=== PATIENT | female | born 1985 | race Caucasian/White ===

== ENCOUNTER → 2017-06-09 | Outpatient (REF) | payer BC ==
[2017-06-12 08:06] LABS: HPV HYBRID CAPTURE II Negative (Negative)
== END ==
LOC: M LAB REF 13:31
DX: Z12.4 Encounter for screening for malignant neoplasm of cervix (principal)
CPT/HCPCS: G0123

== ENCOUNTER → 2017-06-16 | Outpatient (REF) | payer BC ==
[2017-06-16 12:15] LABS: ALBUMIN 3.6 GM/DL (3.2-5.2); ALBUMIN/GLOBULIN RATIO 1.24 (1.00-1.93); ALKALINE PHOSPHATASE 41 U/L (45-117); ALT/SGPT 15 U/L (12-78); ANION GAP 8 MEQ/L (8-16); AST/SGOT 16 U/L (7-37); BILIRUBIN,TOTAL 0.2 MG/DL (0.2-1.0); BLOOD UREA NITROGEN 7 MG/DL (7-18); CALCIUM LEVEL 8.7 MG/DL (8.5-10.1); CARBON DIOXIDE LEVEL 29 MEQ/L (21-32); CHLORIDE LEVEL 105 MEQ/L (98-107); CHOLESTEROL LEVEL 133 MG/DL (<200); CHOLESTEROL RISK RATIO 3.325 (<5); CREATININE FOR GFR 0.64 MG/DL (0.55-1.02); GLOMERULAR FILTRATION RATE > 60.0 (>60); GLUCOSE, FASTING 80 MG/DL (70-100); HDL CHOLESTEROL 40 MG/DL (>40); LDL CHOLESTEROL 78.4 MG/DL (<100); NON-HDL-C 93 MG/DL; POTASSIUM SERUM 3.9 MEQ/L (3.5-5.1); SODIUM LEVEL 142 MEQ/L (136-145); TOTAL PROTEIN 6.5 GM/DL (6.4-8.2); TRIGLYCERIDES LEVEL 73 MG/DL (<150)
== END ==
LOC: M SFHCCLAY 08:57
DX: Z13.220 Encounter for screening for lipoid disorders (principal)

== ENCOUNTER → 2018-07-07 | Outpatient (REF) | payer BC ==
[2018-07-23 14:19] LABS: HPV HYBRID CAPTURE II Negative (Negative)
== END ==
LOC: M LAB REF 12:58
PROVIDERS: ATTEND Advanced Practice Midwife
DX: Z12.4 Encounter for screening for malignant neoplasm of cervix (principal)
CPT/HCPCS: 87624; G0123

== ENCOUNTER → 2018-09-25 | Outpatient (REF) | payer BC ==
[2018-09-25 11:45] LABS: BASO % 0.5 % (0.0-1.0); EOS % 0.3 % (0.0-3.0); HEMATOCRIT 38.6 % (36.0-47.0); LYMPH # 0.7 10^3/uL (1.5-4.5); LYMPH % 10.8 % (24.0-44.0); MEAN CORPUSCULAR HEMOGLOBIN 30.4 pg (27.0-33.0); MEAN CORPUSCULAR HGB CONC 33.7 g/dl (32.0-36.5); MEAN CORPUSCULAR VOLUME 90.4 fl (80.0-96.0); MONO # 0.3 10^3/uL (0.0-0.8); MONO % 3.8 % (0.0-5.0); NEUTROPHILS # 5.5 10^3/uL (1.8-7.7); NEUTROPHILS % 84.1 % (36.0-66.0); PLATELET COUNT, AUTOMATED 227 10^3/uL (150-450); RED BLOOD COUNT 4.27 10^6/uL (4.00-5.40); WHITE BLOOD COUNT 6.6 10^3/uL (4.0-10.0)
[2018-09-25 12:41] LABS: HIV 1&2 SCREEN CENTAUR NEGATIVE (NEGATIVE); RUBELLA IgG QUALITATIVE IMMUNE (IMMUNE)
[2018-09-25 13:25] LABS: CHLAMYDIA DNA AMPLIFICATION NEGATIVE (NEGATIVE); GC DNA AMPLIFICATION NEGATIVE (NEGATIVE)
== END ==
LOC: M LABDRAWC 11:02
PROVIDERS: ATTEND Advanced Practice Midwife
DX: Z34.81 Encounter for supervision of other normal pregnancy, first trimester (principal); Z3A.09 9 weeks gestation of pregnancy

== ENCOUNTER → 2018-12-31 | Outpatient (CLI) | payer BC ==
[2018-12-31 19:35] LABS: HEMATOCRIT 36.7 % (36.0-47.0); MEAN CORPUSCULAR HEMOGLOBIN 30.5 pg (27.0-33.0); MEAN CORPUSCULAR HGB CONC 32.7 g/dl (32.0-36.5); MEAN CORPUSCULAR VOLUME 93.4 fl (80.0-96.0); PLATELET COUNT, AUTOMATED 224 10^3/uL (150-450); RED BLOOD COUNT 3.93 10^6/uL (4.00-5.40); WHITE BLOOD COUNT 11.3 10^3/uL (4.0-10.0)
== END ==
LOC: M SMT 13:04
PROVIDERS: ATTEND Advanced Practice Midwife
DX: O99.512 Diseases of the respiratory system complicating pregnancy, second trimester (principal)

== ENCOUNTER → 2019-03-12 | Outpatient (REF) | payer BC | LOC: M LAB REF 13:02 | PROVIDERS: ATTEND Advanced Practice Midwife | DX: Z36.85 Encounter for antenatal screening for Streptococcus B (principal); O26.893 Other specified pregnancy related conditions, third trimester; Z3A.00 Weeks of gestation of pregnancy not specified ==

== ENCOUNTER → 2019-03-17 | Outpatient (CLI) | payer BC | LOC: M SMT 08:29 | PROVIDERS: ATTEND Advanced Practice Midwife | DX: O26.893 Other specified pregnancy related conditions, third trimester (principal); Z3A.00 Weeks of gestation of pregnancy not specified ==

== ENCOUNTER 2019-04-11 20:58 | Outpatient (CLI) | payer BC ==
[~2019-04-11] VITALS: Ht 162.6 cm; Wt 96.7 kg
== END 2019-04-11 23:10 | disposition home or self-care (01) ==
LOC: M LDO 20:58
PROVIDERS: ATTEND Obstetrics & Gynecology
DX: O47.1 False labor at or after 37 completed weeks of gestation (principal); Z3A.40 40 weeks gestation of pregnancy
CPT/HCPCS: 59025; G0378; G0463

== ENCOUNTER 2019-04-12 05:26 | Inpatient (IN) | payer BC ==
[2019-04-12] VITALS (50 sets, daily range): BP systolic 103–141; BP diastolic 57–92
[~2019-04-12] VITALS: Ht 162.6 cm; Wt 97.6 kg
[2019-04-12] MEDS ORDERED: PENICILLIN G POTASSIUM IV 5 MU in D5W MINI-BAG PLUS 100 ML IV ONE (06:45)
[2019-04-12] MEDS: LR 1,000 ML IV SCH ×3 (07:00→18:44)
[2019-04-12 07:06] LABS: HEMATOCRIT 39.4 % (36.0-47.0); HEMOGLOBIN 13.4 g/dl (12.0-15.5); MEAN CORPUSCULAR HEMOGLOBIN 31.2 pg (27.0-33.0); MEAN CORPUSCULAR VOLUME 91.6 fl (80.0-96.0); PLATELET COUNT, AUTOMATED 172 10^3/uL (150-450); WHITE BLOOD COUNT 11.3 10^3/uL (4.0-10.0)
[2019-04-12] MEDS ORDERED: LACTATED RINGER'S 1000 ML IV STA (07:51)
--- NOTE | 2019-04-12 07:52 | HPE ---
DATE OF ADMISSION: 04/12/2019 REASON FOR ADMISSION: Labor. HISTORY OF PRESENT ILLNESS: The patient is a 34-year-old 2, para 0 who presents at 40 weeks plus 5 days estimated gestational age with complaints of contractions. She reports contractions have increased in intensity and frequency throughout the night. She reports active movement. No vaginal bleeding or leakage of fluid. Her course has been unremarkable. She initiated care in her first trimester and has been appropriate throughout. PAST MEDICAL HISTORY: Exercise-induced asthma. PAST SURGICAL HISTORY: She has had dilation and curettage. MEDICATIONS: Includes: - vitamins. ALLERGIES: 1. SULFA. OBSTETRICAL HISTORY: She is 1, para 0. SOCIAL HISTORY: She denies any alcohol, tobacco or drug use. PHYSICAL EXAMINATION Her vital signs are stable. She is afebrile. She has category 1 rate tracing. CERVICAL EXAM: She was 3 cm dilated, 80% effaced, -2 station. LABS: Blood type is A positive. Antibody screen negative. Rubella is immune. RPR is nonreactive. Hepatitis surface antigen negative. HIV is negative. Hepatitis C nonreactive. Chlamydia and gonorrhea screens were negative. She had a normal one hour Glucola. She is Group B Streptococcus (GBS) positive. ASSESSMENT: 1. This patient is 34-year-old 2, para 0 at 40 weeks 5 days estimated gestational age here in active labor. 2. Reassuring status. PLAN: 1. Admit to labor and delivery. CBC, RPR, type and screen. 2. Penicillin for GBS positive. 3. Patient is a good candidate for epidural. 4. Anticipate spontaneous vaginal delivery.
[2019-04-12] MEDS ORDERED: FENTANYL 2MCG/ML ROPIVACAINE 0.2% IN 0.9% NACL 100ML IVBAG As Ordered ONE (07:54)
[2019-04-12] MEDS: FENTANYL/ROPIVACAINE/NACL BAG 100 ML EPIDURAL SCH ×2 (08:25→16:57)
[2019-04-12] MEDS ORDERED: diphenhydrAMINE INJ 50MG/ML VIAL (J1200) IV PRN (09:00)
[2019-04-12] MEDS ORDERED: NALOXONE INJ 0.4 MG/1 ML VIAL (J2310) IV PRN (09:00)
[2019-04-12] MEDS ORDERED: EPIDURAL COMMENT XX SCH (09:00)
[2019-04-12] MEDS ORDERED: REFRIGERATOR IV KEYS XX PRN (09:00)
[2019-04-12] MEDS ORDERED: LACTATED RINGER'S 1000 ML IV PRN (09:00)
[2019-04-12] MEDS ORDERED: EPIDURAL/PCA KEYS XX PRN (09:00)
[2019-04-12] MEDS ORDERED: ONDANSETRON 4MG/2ML VIAL (J2405) IV PRN (09:00)
[2019-04-12] MEDS ORDERED: ePHEDrine SULFATE 25 MG/5 ML(5MG/ML) SYRINGE IV PRN (09:00)
[2019-04-12] MEDS ORDERED: OXYTOCIN DRIP 30 UNITS in IV 1 EA IV SCH ×2 (09:45→20:26)
[2019-04-12] MEDS: PENICILLIN G POTASSIUM IV 2.5 MU in IV 1 EA IV SCH ×2 (11:41→15:16)
--- NOTE | 2019-04-12 12:02 | IPNPDOC ---
Obstetrical Progress Note Date of Service Apr 12, 2019 Subjective Patient reports increased pressure. States epidural is working well. Objective Vital Signs Label Value Date Time Patient Temperature 98.2 degrees F 04/12/19 1109 Temperature Source Temporal 04/12/19 1109 Pulse 88 04/12/19 1109 Respiratory Rate 16 bpm 04/12/19 1109 Blood Pressure Assessment 114/73 (87) 04/12/19 1109 Source Automatic Cuff (NIBP) Assessment Heart Rate (FHR): 130 Variability: Moderate Accelerations: Positive Decelerations: Early Heart Rate Tracing: Category I Tocometer Contractions: Yes Frequency: regular Sterile Vaginal Examination Dilation: 5 cm (5-6 cm) Effacement (%): 100% Station: 0 Postion/Presentation: Cephalic presentation Assessment and Plan Age: 34 : 2 Term: 0 Pre-term: 0 Abortions: 1 Livin EGA at Admission: 40.4 Status: Reassuring Group B Streptococcus: Positive Anticipate: Vaginal Delivery Additional Comments IV Pitocin at 4 mu/min. AROM to a moderate amount of meconium noted. Neonatology to be notified as needed. OLU THAYER CNM Apr 12, 2019 12:02
[2019-04-12 20:14] LABS: CORD GAS ABE A -4.4; CORD GAS HCO3 A 22.7 MEQ/L; CORD GAS PCO2 A 49.2 mmHg; CORD GAS PH A 7.282 UNITS; CORD GAS PO2 A 13.5 mmHg; CORD GAS SBC A 18.9 MEQ/L; CORD GAS TCO2 A 24.2 MEQ/L
[2019-04-12 20:15] LABS: CORD GAS ABE V -4.5; CORD GAS HCO3 V 21.5 MEQ/L; CORD GAS O2 SAT V 38.6 %; CORD GAS PCO2 V 42.6 mmHg; CORD GAS PH V 7.32 UNITS; CORD GAS PO2 V 19.2 mmHg; CORD GAS SBC V 19.3 MEQ/L; CORD GAS TCO2 V 22.8 MEQ/L
[2019-04-12] MEDS ORDERED: ACETAMINOPHEN 500 MG TAB PO PRN (20:30)
[2019-04-12] MEDS ORDERED: DOCUSATE SODIUM 100 MG CAP PO PRN (20:30)
[2019-04-12] MEDS ORDERED: ANUSOL HC CREAM 30GM TOP PRN (20:30)
[2019-04-12] MEDS ORDERED: RHOGAM 300 MCG (1500 IU) INJ (J2790) IM SCH (20:30)
[2019-04-12] MEDS ORDERED: IBUPROFEN 800 MG TAB PO PRN (20:30)
[2019-04-12] MEDS ORDERED: DIBUCAINE 1% OINTMENT 30GM TOP PRN (20:30)
[2019-04-12] MEDS ORDERED: METHYLERGONOVINE MALEATE 0.2 MG TAB PO PRN (20:30)
[2019-04-12] MEDS ORDERED: MEASLES,MUMPS,RUBELLA VACCINE INJ (MMR-II) (90707) SC SCH (20:30)
[2019-04-12] MEDS ORDERED: ACETAMINOPHEN TAB 650MG DOSE (2X325MG) PO PRN (20:30)
--- NOTE | 2019-04-12 20:40 | DNPDOC ---
[facility] Delivery Note Delivery Note DATE OF DELIVERY: 04/12/19 at 1918 PREDELIVERY DIAGNOSIS: 40-4/7 weeks' gestation and labor. POST DELIVERY DIAGNOSIS: Delivered. PROCEDURE: Spontaneous vaginal delivery. SOCIAL PSYCHOLOGIST: Olu Cifuentes CNM, WHNP ANESTHESIA: epidural. ESTIMATED BLOOD LOSS: 300 mL. FINDINGS: 6 pounds 11 ounces; 3040 grams; male , Score 7/9, meconium, AMA. DELIVERY SUMMARY: Patient is a 34-year-old female who is now a at 40.4 weeks gestation who presented to L&D in active labor. She received an epidural for for pain management. She progressed to fully dilated at 1830 and pushed to a living male in the [place]AS[place] position with restitution to ROT. The anterior shoulder delivered with ease and the corpus immediately followed at 191. The baby was placed on the maternal abdomen. The cord was clamped and cut. The baby was pl aced on the warming table and suctioned and given some supplemental oxygen. Cord gases were obtained. See below. A 3-vessel cord was noted. The placenta delivered spontaneously and intact at 192. Uterine hemostasis was achieved via rapid in fusion of IV Pitocin and fundal massage. The perineum, vagina, and cervix were inspected and found to have a second degree laceration that was repaired with a 3.[address]-1. Mom plans to breast feed her and was able to do so in L&D. They are naming him Foster. Both mom and baby are in stable condition. All counts of instruments and sponges are correct. Item Value Date Time Cord Arterial Blood pH 7.282 UNITS 04/12/191999 Cord Arterial Blood PCO2 49.2 mmHg 04/12/191999 Cord Arterial Blood PO2 13.5 mmHg 04/12/191999 Cord Arterial Blood HCO3 22.7 MEQ/L 04/12/191999 Cord Arterial Blood Total CO2 24.2 MEQ/L 04/12/191999 Cord Arterial Blood Base Excess -4.4 04/12/191999 Cord Arterial Base Excess (Standard 18.9 MEQ/L 04/12/191999 Cord Arterial Bld Oxygen Saturation 18.0 % 04/12/191999 Item Value Date Time Cord Venous Blood pH 7.320 UNITS 04/12/191999 Cord Venous Blood PCO2 42.6 mmHg 04/12/191999 Cord Venous Blood PO2 19.2 mmHg 04/12/191999 Cord Venous Blood HCO3 21.5 MEQ/L 04/12/191999 Cord Venous Blood Total CO2 22.8 MEQ/L 04/12/191999 Cord Venous Base Excess (Actual) -4.5 04/12/191999 Cord Venous Base Excess (Standard) 19.3 MEQ/L 04/12/191999 Cord Venous Blood Oxygen Saturation 38.6 % 04/12/191999 OLU CIFUENTES CNM Apr 12, 2019 20:40
[2019-04-12] MEDS: IBUPROFEN 600 MG TAB PO PRN (21:40)
[2019-04-13 06:00] VITALS: BP 107/64
[2019-04-13] MEDS: IBUPROFEN 600 MG TAB PO PRN (06:28)
--- NOTE | 2019-04-13 07:10 | IPNPDOC ---
Progress Note Date of Service: Apr 13, 2019 Day#: 1 Progress Note SUBJECT: She has been ambulating, voiding spontaneously without issue and terrance erating regular diet. is struggling with breast feeding. Reports lochia is like a normal to heavy period. OBJECTIVE: VITAL SIGNS: Within normal limits, afebrile. Alert and oriented times three. Breath sounds clear to auscultation. Heart rate: Regular rate and rhythm, no murmurs, rubs or gallops. Abdomen: Fundus firm at U. Soft, NTTP. Moderate lochia. ASSESSMENT: Day 1 . PLAN: 1. Continue with supportive nursing care. 2. Continue with support. 3. Anticipate discharge to home tomorrow. VS, I&O, 24H, Fishbone Vital Signs/I&O Vital Signs Date Time Temp Pulse Resp B/P (MAP) Pulse Ox O2 Delivery O2 Flow Rate FiO2 04/13/19 06:00 99.7 84 20 107/64 (78) 97 Room Air I&O- Last 24 Hours up to 6 AM 04/13/19 06:00 Intake Total 4650 ml Output Total 1950 ml Balance 2700 ml Laboratory Data 24H LABS Laboratory Tests 2 04/12/19 20:00: Cord Arterial Blood pH 7.282, Cord Arterial Blood PCO2 49.2, Cord Arterial Blood PO2 13.5, Cord Arterial Blood HCO3 22.7, Cord Arterial Blood Total CO2 24.2, Cord Arterial Blood Base Excess -4.4, Cord Arterial Base Excess (Standard 18.9, Cord Arterial Bld Oxygen Saturation 18.0, Cord Venous Blood pH 7.320, Cord Venous Blood PCO2 42.6, Cord Venous Blood PO2 19.2, Cord Venous Blood HCO3 21.5, Cord Venous Blood Total CO2 22.8, Cord Venous Base Excess (Actual) -4.5, Cord Venous Base Excess (Standard) 19.3, Cord Venous Blood Oxygen Saturation 38.6 OLU THAYER CNM Apr 13, 2019 07:10
[2019-04-13 18:00] VITALS: BP 110/76
[2019-04-14 06:00] VITALS: BP 112/57
[2019-04-14] MEDS ORDERED: IBUP80TA PO (06:16)
[2019-04-14] MEDS ORDERED: ACET-683 PO (06:16)
[2019-04-14] MEDS: PRENATAL VITAMINS CHEWABLE TABLET PO SCH (08:00)
[2019-04-14] MEDS: IBUPROFEN 600 MG TAB PO PRN (08:01)
== END 2019-04-14 12:20 | disposition home or self-care (01) | DRG 560 ==
LOC: M LDO 05:26 → M LDI 05:55 → M OBS 21:13
PROVIDERS: ADMIT Obstetrics & Gynecology; ATTEND Advanced Practice Midwife
PROC: 10E0XZZ Delivery of Products of Conception, External Approach (ICD-10-PCS; principal; 2019-04-12)
PROC: 10907ZC Drainage of Amniotic Fluid, Therapeutic from Products of Conception, Via Natural or Artificial Opening (ICD-10-PCS; 2019-04-12)
PROC: 0KQM0ZZ Repair Perineum Muscle, Open Approach (ICD-10-PCS; 2019-04-12)
DX: O48.0 Post-term pregnancy (principal); Z3A.40 40 weeks gestation of pregnancy; Z37.0 Single live birth; O99.824 Streptococcus B carrier state complicating childbirth; O77.0 Labor and delivery complicated by meconium in amniotic fluid; O70.1 Second degree perineal laceration during delivery

== ENCOUNTER → 2019-12-10 | Outpatient (REF) | payer OTHER, BC ==
[~2019-12-10] MED LIST: ACET-683 PO; IBUP80TA PO
== END ==
LOC: M LAB REF 18:37
PROVIDERS: ATTEND Physician Assistant Medical
DX: Z11.59 Encounter for screening for other viral diseases (principal); Z20.828 Contact with and (suspected) exposure to other viral communicable diseases

== ENCOUNTER → 2020-09-19 | Outpatient (CLI) | payer OTHER ==
--- NOTE | 2020-09-20 10:45 | REP ---
INDICATION: N63.0 LT BREAST LUMP. COMPARISON: None TECHNIQUE: Diagnostic left mammography was carried out with diagnostic left breast ultrasonography. Patient presents with a clinically palpable mass in the left breast near the 3 o'clock position. In addition to standard CC and MLO views of the left breast using 2D and 3D modalities, diagnostic digital magnified spot compression views were obtained over the region of interest indicated by the technologist placing a triangular-shaped marker on the skin. FINDINGS: Scattered dense heterogenous fibroglandular elements are seen throughout the left breast the such a degree that the sensitivity of the mammogram in detecting cancers decreased. There are no masses. There is no internal architectural distortion. There are no suspicious microcalcifications. No skin thickening or nipple retraction is not present. Diagnostic digital magnified spot compression views of the left breast over the region of interest show no abnormalities. Diagnostic ultrasonography of the left breast over the region of interest shows no cystic or solid masses. The Volpara volumetric breast density pattern is C. IMPRESSION: BIRADS/ACR category 2. There is no mammographic evidence or ultrasonographic evidence of malignant alteration of the left breast. Routine mammography is recommended as clinically indicated. This patient's Tyrer-Cuzick lifetime breast cancer risk assessment score is 17.7%. This mammogram was interpreted with the aid of an FDA-approved computer-aided detection system. The patient states she had a clinical breast exam in the date of the last clinical breast exam is not indicated in the paperwork provided.. The patient letter being requested is M2. Negative mammogram and a negative breast ultrasound examination should never could curtail biopsy of a clinically palpable mass or clinically suspicious area of the breast. Consider surgical consultation and breast MRI. RECOMMENDATION: As above <Electronically signed by Lorenzo Srivastava > 09/20/20 [id number]
== END ==
LOC: M WHC 09:52
PROVIDERS: ATTEND Advanced Practice Midwife
DX: N63.0 Unspecified lump in unspecified breast (principal)

== ENCOUNTER → 2020-11-22 | Outpatient (CLI) | payer OTHER ==
[~2020-11-22] MED LIST changes: +PROHANCE 279.3MG/ML 15ML VIAL As Ordered ONE
--- NOTE | 2020-11-22 11:35 | REP ---
INDICATION: LT BREAST MASS. COMPARISON: Comparison mammography and sonography of the left breast September 19, 2020. TECHNIQUE: Three Sarai MRI imaging was performed with a dedicated breast coil. Axial, coronal, and sagittal T1 and T2 weighted scans were obtained with and without fat saturation in the usual fashion. The study includes dynamically acquired post gadolinium-enhanced imaging with image subtraction. Maximum intensity projection and multi planar reformation imaging is included as well. This study is interpreted with the aid of [place], an FDA approved computer aided detection (CAD) software program, on a dedicated breast MRI workstation. The gadolinium enhancement dose is 15 mL of intravenous ProHance. FINDINGS: There is a moderate amount of fibroglandular tissue bilaterally corresponding with the mammographic pattern. There is minimal background parenchymal enhancement. There is no evidence of axillary lymphadenopathy or significant breast cystic change. Scattered small subcentimeter T2 hyperintense areas consistent with small fibroadenomas are noted. High-resolution pre and post-contrast T1 and T2 weighted scans show no suspicious morphologic abnormality in either breast. Dynamically acquired sequential postcontrast images show no suspicious area of enhancement and washout kinetics in either breast to suggest malignancy. Subtraction images show no additional abnormality. IMPRESSION: BI-RADS category 2 benign bilateral breast MRI findings. <Electronically signed by Marvel Grayson > 11/22/20 [id number]
== END ==
LOC: M RAD 09:21
PROVIDERS: ATTEND Advanced Practice Midwife
DX: N63.20 Unspecified lump in the left breast, unspecified quadrant (principal)

== ENCOUNTER → 2021-05-11 | Outpatient (CLI) | payer OTHER ==
[~2021-05-11] MED LIST changes: -PROHANCE 279.3MG/ML 15ML VIAL As Ordered ONE
[2021-05-11 17:21] LABS: HEMATOCRIT 37.4 % (36.0-47.0); HEMOGLOBIN 12.5 g/dl (12.0-15.5); MEAN CORPUSCULAR HGB CONC 33.4 g/dl (32.0-36.5); MEAN CORPUSCULAR VOLUME 89.7 fl (80.0-96.0); PLATELET COUNT, AUTOMATED 271 10^3/uL (150-450); RED BLOOD COUNT 4.17 10^6/uL (4.00-5.40); WHITE BLOOD COUNT 11.1 10^3/uL (4.0-10.0)
[2021-05-11 18:23] LABS: HEPATITIS C VIRUS ABY INDEX 0.1 INDEX (<0.8); HIV 1&2 SCREEN CENTAUR NEGATIVE (NEGATIVE)
[2021-05-11 19:00] LABS: GC DNA AMPLIFICATION NEGATIVE (NEGATIVE)
== END ==
LOC: M PLALAB 15:07
PROVIDERS: ATTEND Advanced Practice Midwife
DX: O09.521 Supervision of elderly multigravida, first trimester (principal)

== ENCOUNTER → 2021-09-20 | Outpatient (CLI) | payer OTHER ==
[2021-09-20 15:08] LABS: HEMATOCRIT 33.8 % (36.0-47.0); HEMOGLOBIN 11.4 g/dl (12.0-15.5); MEAN CORPUSCULAR HEMOGLOBIN 30.6 pg (27.0-33.0); MEAN CORPUSCULAR HGB CONC 33.7 g/dl (32.0-36.5); MEAN CORPUSCULAR VOLUME 90.6 fl (80.0-96.0); PLATELET COUNT, AUTOMATED 211 10^3/uL (150-450); RED BLOOD COUNT 3.73 10^6/uL (4.00-5.40); WHITE BLOOD COUNT 10.7 10^3/uL (4.0-10.0)
== END ==
LOC: M PLALAB 13:00
PROVIDERS: ATTEND Advanced Practice Midwife
DX: O09.522 Supervision of elderly multigravida, second trimester (principal)

== ENCOUNTER → 2021-10-18 | Outpatient (CLI) | payer OTHER ==
[2021-10-18 13:10] LABS: HEMOGLOBIN 11.3 g/dl (12.0-15.5); MEAN CORPUSCULAR HEMOGLOBIN 30.2 pg (27.0-33.0); MEAN CORPUSCULAR HGB CONC 33.2 g/dl (32.0-36.5); MEAN CORPUSCULAR VOLUME 90.9 fl (80.0-96.0); PLATELET COUNT, AUTOMATED 221 10^3/uL (150-450); RED BLOOD COUNT 3.74 10^6/uL (4.00-5.40); WHITE BLOOD COUNT 11.6 10^3/uL (4.0-10.0)
[2021-10-18 14:10] LABS: FREE T4 0.82 NG/DL (0.76-1.46); THYROID STIMULATING HORMONE 0.688 uIU/ML (0.358-3.740)
== END ==
LOC: M PLALAB 11:03
PROVIDERS: ATTEND Advanced Practice Midwife
DX: O26.813 Pregnancy related exhaustion and fatigue, third trimester (principal); Z3A.00 Weeks of gestation of pregnancy not specified

== ENCOUNTER → 2021-11-20 | Outpatient (CLI) | payer OTHER | LOC: M WHC 10:12 | PROVIDERS: ATTEND Advanced Practice Midwife | DX: O98.513 Other viral diseases complicating pregnancy, third trimester (principal); Z3A.36 36 weeks gestation of pregnancy ==

== ENCOUNTER → 2021-11-21 | Outpatient (REF) | payer OTHER | LOC: M PLALAB 16:10 | PROVIDERS: ATTEND Advanced Practice Midwife | DX: O09.523 Supervision of elderly multigravida, third trimester (principal) ==

== ENCOUNTER 2021-12-10 16:13 | Inpatient (IN) | payer OTHER ==
[2021-12-10] VITALS (18 sets, daily range): BP systolic 118–159; BP diastolic 59–80
[~2021-12-10] VITALS: Ht 170.2 cm; Wt 100.1 kg
[2021-12-10] MEDS ORDERED: LACTATED RINGER'S 1000 ML IV STA (16:44)
[2021-12-10] MEDS ORDERED: OXYTOCIN INJ 10 UNITS/ML VIAL (J2590) IM PRN (16:45)
[2021-12-10] MEDS ORDERED: TRANEXAMIC ACID INJection 1,000 MG in NS 100 ML IV PRN (16:45)
[2021-12-10] MEDS ORDERED: LR 1,000 ML IV SCH (16:45)
[2021-12-10] MEDS ORDERED: METHYLERGONOVINE MALEATE 0.2 MG/ML VIAL (J2210) IM PRN (16:45)
[2021-12-10] MEDS ORDERED: OXYTOCIN DRIP 30 UNITS in IV 1 EA IV PRN (16:45)
[2021-12-10] MEDS ORDERED: LIDOCAINE 1% MDV 20ML VIAL INFIL PRN (16:45)
[2021-12-10] MEDS ORDERED: CARBOPROST TROMETHAMINE 250 MCG/ML AMP IM PRN (16:45)
[2021-12-10] MEDS ORDERED: PRENTAB9 PO (16:58)
[2021-12-10] MEDS ORDERED: COLA100C5 PO (16:58)
[2021-12-10] MEDS ORDERED: HOME MED LIST COMPLETE! XX SCH (17:00)
[2021-12-10 17:47] LABS: MEAN CORPUSCULAR HEMOGLOBIN 30.2 pg (27.0-33.0); MEAN CORPUSCULAR HGB CONC 33.3 g/dl (32.0-36.5); MEAN CORPUSCULAR VOLUME 90.7 fl (80.0-96.0); PLATELET COUNT, AUTOMATED 187 10^3/uL (150-450); WHITE BLOOD COUNT 10.9 10^3/uL (4.0-10.0)
[2021-12-10] MEDS ORDERED: FENTANYL 2MCG/ML ROPIVACAINE 0.2% IN 0.9% NACL 100ML IVBAG As Ordered ONE (18:24)
[2021-12-10] MEDS ORDERED: ONDANSETRON 4MG 2ML VIAL IV PRN (18:30)
[2021-12-10] MEDS ORDERED: FENTANYL/ROPIVACAINE/NACL BAG 100 ML EPIDURAL SCH (18:30)
[2021-12-10] MEDS ORDERED: ePHEDrine SULFATE 25 MG/5 ML(5MG/ML) SYRINGE IVP PRN (18:30)
[2021-12-10] MEDS ORDERED: NALOXONE INJ 0.4MG/1ML VIAL (J2310 PER 1MG) IV PRN (18:30)
[2021-12-10] MEDS ORDERED: LR 500 ML IV PRN (18:30)
[2021-12-10] MEDS ORDERED: EPIDURAL/PCA KEYS XX PRN (18:30)
[2021-12-10] MEDS ORDERED: diphenhydrAMINE 50MG/ML VIAL (J1200) IV PRN (18:30)
[2021-12-10 21:32] LABS: ALT/SGPT 29 U/L (12-78); BILIRUBIN,TOTAL 0.3 MG/DL (0.2-1.0); CREATININE FOR GFR 0.59 MG/DL (0.55-1.30); GLOMERULAR FILTRATION RATE > 60.0 (>60); LDH LACTATE DEHYDROGENASE 285 U/L (84-246); URIC ACID 4.5 MG/DL (2.6-6.0)
[2021-12-10] MEDS ORDERED: ACETAMINOPHEN 500 MG TAB PO PRN (21:55)
[2021-12-10] MEDS ORDERED: ACETAMINOPHEN TAB 650MG DOSE (2X325MG) PO PRN (21:55)
[2021-12-10] MEDS ORDERED: IBUPROFEN 800 MG TAB PO PRN (21:55)
[2021-12-10] MEDS ORDERED: IBUPROFEN 600MG TAB PO PRN (21:55)
[2021-12-10] MEDS ORDERED: DIBUCAINE 1% OINTMENT 30GM TOP PRN (21:55)
[2021-12-10] MEDS ORDERED: ANUSOL HC CREAM 30GM TOP PRN (21:55)
[2021-12-10] MEDS ORDERED: RHOGAM 300 MCG (1500 IU) INJ (J2790) IM SCH (21:55)
[2021-12-11 00:12] VITALS: BP 121/78
[2021-12-11 05:21] VITALS: BP 109/59
[2021-12-11] MEDS: DOCUSATE SODIUM 100MG CAPSULE PO PRN (07:30)
[2021-12-11] MEDS: PRENATAL VITAMINS CHEWABLE TABLET PO SCH (07:30)
[2021-12-11 08:31] VITALS: BP 109/59
[2021-12-11 18:00] VITALS: BP 121/56
[2021-12-12 06:28] VITALS: BP 120/64
[2021-12-12] MEDS: PRENATAL VITAMINS CHEWABLE TABLET PO SCH (08:05)
[2021-12-12] MEDS: DOCUSATE SODIUM 100MG CAPSULE PO PRN (08:08)
[2021-12-12] MEDS ORDERED: MEASLES,MUMPS,RUBELLA VACCINE INJ (MMR-II) (90707) SC.IMMUN ONE (09:00)
== END 2021-12-12 10:35 | disposition home or self-care (01) | DRG 560 ==
LOC: M LDO 16:13 → M LDI 16:44 → M OBS 12-11 00:10
PROVIDERS: ADMIT Advanced Practice Midwife; ATTEND Advanced Practice Midwife
PROC: 10E0XZZ Delivery of Products of Conception, External Approach (ICD-10-PCS; principal; 2021-12-10)
PROC: 0HQ9XZZ Repair Perineum Skin, External Approach (ICD-10-PCS; 2021-12-10)
PROC: 10907ZC Drainage of Amniotic Fluid, Therapeutic from Products of Conception, Via Natural or Artificial Opening (ICD-10-PCS; 2021-12-10)
DX: O77.0 Labor and delivery complicated by meconium in amniotic fluid (principal); Z37.0 Single live birth; Z88.2 Allergy status to sulfonamides; Z3A.39 39 weeks gestation of pregnancy; Z86.16 Personal history of COVID-19; O70.0 First degree perineal laceration during delivery

== ENCOUNTER → 2025-02-17 | Outpatient (CLI) | payer OTHER ==
[~2025-02-17] MED LIST changes: +COLA100C5 PO; +PRENTAB9 PO
== END ==
LOC: M WHC 14:02
PROVIDERS: ATTEND Advanced Practice Midwife
DX: Z12.31 Encounter for screening mammogram for malignant neoplasm of breast (principal); R92.323 Mammographic fibroglandular density, bilateral breasts